=== PATIENT | female | born 1980 | race Two or more races ===

== ENCOUNTER 2016-08-07 15:53 | Observation (INO) | payer MEDICAID ==
[~2016-08-07] VITALS: Ht 160 cm; Wt 85.3 kg
[2016-08-07 16:34] LABS: Basophils # (auto) 0 uL; Basophils % (auto) 0.4 % (0.0-2.0); Eosinophils # (auto) 0.1 uL; Eosinophils % (auto) 0.7 % (0.0-7.0); Hemoglobin 13.6 g/dL (12.2-16.2); Lymphocytes # (auto) 1.9 uL; Lymphocytes % (auto) 22.3 % (10.0-50.0); Mean Corpuscular Hemoglobin 28.8 pg (28.0-32.0); Mean Corpuscular Hgb Conc. 33.1 g/dL (32.0-36.0); Mean Platelet Volume 9.3 fL (7.4-10.4); Monocytes # (auto) 0.3 uL; Monocytes % (auto) 3.6 % (0.0-12.0); Neutrophils # (auto) 6.3 uL; Platelet Count (auto) 295 10^3/uL (140-450); Red Cell Distribution Width 13.3 % (11.6-16.0); White Blood Cell 8.6 10^3/uL (4.4-10.8)
[2016-08-07 16:42] LABS: Albumin 4.1 g/dL (3.4-5.0); BUN/Creatinine Ratio 22.2; Calcium 8.6 mg/dL (8.5-10.1)
[2016-08-07 16:45] LABS: Bilirubin, Total 0.4 mg/dL (0.2-1.0); Total Protein 7.9 g/dL (6.4-8.2)
[2016-08-07] MEDS ORDERED: SODIUM CHLORIDE 0.9% 1,000 ML IVB ONE (20:23)
[2016-08-07 20:28] LABS: Urine Bilirubin Negative (Negative); Urine Blood Negative /uL (Negative); Urine Color Yellow (Yellow); Urine Glucose Normal (Normal); Urine Ketone Negative (Negative); Urine Nitrite Negative (Negative); Urine RBC <1 /hpf (0 - 4); Urine Squamous Epithelial Cell FEW /hpf (<5); Urine Urobilinogen Normal (Negative)
[2016-08-07] MEDS ORDERED: MORPHINE SULF INJ 2 MG/ML SYRINGE 1ML IV ONE ×2 (20:30→23:00)
[2016-08-07] MEDS ORDERED: ONDANSETRON HCL 4 MG/2 ML VIAL IV ONE ×2 (20:30→23:00)
[2016-08-07 21:54] LABS: Amylase 39 U/L (25-115)
[2016-08-07] MEDS ORDERED: cefTRIAXone 1GM/50ML D5W 50 ML IV ONE (22:30)
[2016-08-08] MEDS ORDERED: MORPHINE SULFATE 4 MG/ML SYRG IV ONE ×2 (02:15→02:30)
[2016-08-08] MEDS ORDERED: ONDANSETRON HCL 4 MG/2 ML VIAL IV ONE (02:15)
[2016-08-08] MEDS ORDERED: SODIUM CHLORIDE 0.9% 1,000 ML IV ONE (02:30)
[2016-08-08 03:40] VITALS: BP 112/60
== END 2016-08-08 03:53 | disposition home or self-care (01) ==
LOC: ER 15:59 → OVERFLOW 20:25 → ER 08-08 03:53
PROVIDERS: ADMIT Family Medicine; ATTEND Family Medicine
DX: K80.01 Calculus of gallbladder with acute cholecystitis with obstruction (principal); N30.00 Acute cystitis without hematuria; N39.0 Urinary tract infection, site not specified
CPT/HCPCS: 36415; 71010; 76705; 80053; 81001; 81025; 82150; 83690; 85025; 96361; 96365; 96375; 96376; G0378; J0696; J2405

== ENCOUNTER 2018-03-30 18:40 | Emergency (ER) | payer MEDICAID ==
[~2018-03-30] VITALS: Ht 160 cm; Wt 84.8 kg
[2018-03-30 19:30] LABS: Urine Bacteria NONE SEEN /hpf (None Seen); Urine Blood Negative /uL (Negative); Urine Mucus FEW (None Seen); Urine Specific Gravity 1.033 (1.001-1.035); Urine WBC 4 /hpf (0 - 5)
[2018-03-30 20:14] LABS: Basophils # (auto) 0 uL; Basophils % (auto) 0.3 % (0.0-2.0); Eosinophils # (auto) 0.1 uL; Eosinophils % (auto) 0.7 % (0.0-7.0); Hematocrit 41.6 % (36.0-46.0); Hemoglobin 13.9 g/dL (12.2-16.2); Lymphocytes # (auto) 2.3 uL; Lymphocytes % (auto) 23.7 % (10.0-50.0); Mean Corpuscular Hemoglobin 29.4 pg (28.0-32.0); Mean Corpuscular Hgb Conc. 33.5 g/dL (32.0-36.0); Mean Corpuscular Volume 87.9 fL (80.0-100.0); Monocytes # (auto) 0.6 uL; Monocytes % (auto) 6.1 % (0.0-12.0); Neutrophils # (auto) 6.7 uL; Neutrophils % (auto) 69.2 % (37.0-80.0); Nucleated Red Blood Cells % 0.1 %; Platelet Count (auto) 285 10^3/uL (140-450); Red Blood Cells 4.74 10^6/uL (4.0-5.20); Red Cell Distribution Width 13.1 % (11.8-14.3); White Blood Cell 9.7 10^3/uL (4.4-10.8)
[2018-03-30 20:30] LABS: Albumin 4.1 g/dL (3.4-5.0); Calcium 8.9 mg/dL (8.5-10.1)
[2018-03-30 20:32] LABS: BUN/Creatinine Ratio 12.1
[2018-03-30 20:44] LABS: Bilirubin, Total 0.5 mg/dL (0.2-1.0); Total Protein 7.9 g/dL (6.4-8.2)
[2018-03-30 22:39] VITALS: BP 145/68
== END 2018-03-30 22:45 | disposition home or self-care (01) ==
LOC: ER 18:40
DX: O23.41 Unspecified infection of urinary tract in pregnancy, first trimester (principal); O34.81 Maternal care for other abnormalities of pelvic organs, first trimester; N83.201 Unspecified ovarian cyst, right side; Z3A.01 Less than 8 weeks gestation of pregnancy
CPT/HCPCS: 36415; 76801; 80053; 81001; 84702; 85025

== ENCOUNTER 2018-08-16 21:22 | Observation (INO) | payer MEDICAID ==
[~2018-08-16] VITALS: Ht 162.6 cm; Wt 82.6 kg
[2018-08-16] MEDS ORDERED: LACTATED RINGER'S 1,000 ML IV SCH (21:54)
[2018-08-16] MEDS ORDERED: LACTATED RINGER'S 1,000 ML IV ONE (21:54)
[2018-08-16] MEDS ORDERED: TERBUTALINE SULFATE 1 MG/ML 1ML VIAL SC SCH (22:00)
[2018-08-16] MEDS ORDERED: PREN-96 PO (22:04)
[2018-08-16] MEDS ORDERED: TERBUTALINE SULFATE 1 MG/ML 1ML VIAL SC ONE (22:09)
[2018-08-16] MEDS ORDERED: ACETAMINOPHEN 325 MG TAB PO ONE (23:15)
== END 2018-08-17 | disposition home or self-care (01) | DRG 566 ==
LOC: LDRP 21:22
PROVIDERS: ADMIT Specialist; ATTEND Specialist
DX: O26.893 Other specified pregnancy related conditions, third trimester (principal); O09.523 Supervision of elderly multigravida, third trimester; R10.30 Lower abdominal pain, unspecified; R51 Headache; V89.2XXA Person injured in unspecified motor-vehicle accident, traffic, initial encounter; Y93.89 Activity, other specified; Y92.488 Other paved roadways as the place of occurrence of the external cause; Y99.8 Other external cause status; Z3A.28 28 weeks gestation of pregnancy
CPT/HCPCS: 59025; 76815; 81002; 96372; G0378; J3105; 96365; 96366